=== PATIENT | female | born 1955 | race Caucasian/White ===

== ENCOUNTER → 2019-04-25 05:58 | Outpatient (CLI) | payer SELFPAY ==
[2018-10-25 10:33] VITALS: BMI 34.7
--- NOTE | 2019-04-26 15:21 | STRESSREP ---
Stress Test Report Date: 04/25/2019 Procedure: Exercise tolerance test/imaging study Indications: Dizziness Consent: Per the patient Procedure: The patient exercised on a Mamadou protocol for 7 minutes achieving a peak heart rate of 162 bpm (102 % predicted maximal heart rate) with a peak blood pressure 174/72 mmHg and a peak MET capacity of 8.5 METs. The baseline ECG demonstrated normal sinus rhythm, no significant ST-T changes. The peak exercise ECG demonstrated sinus tachycardia with [address] depression in lead III and 1 to [address] depression in lead II, aVF, V3 to V6. EKG during recovery revealed return of ST segments to baseline [There were no cardiac dysrhythmias pretest, during exercise, or recovery]. The functional capacity was considered normal for age. There was [no complaint of chest discomfort during exercise or recovery]. The examination was discontinued secondary to fatigue. Impression: 1. Technically adequate (percent predicted maximal heart rate greater than 85%) exercise tolerance test 2. Stress test is borderline for exercise-induced EKG changes of ischemia 3. The test test negative for exercise-induced chest pain 4. Functional capacity is normal for age 5. Nuclear images pending Myocardial perfusion imaging study: Technique: The patient was injected with 11.9 mCi of technetium 99m Cardiolite and subsequently rest SPECT Cardiolite nuclear imaging was obtained in the horizontal long, vertical long, and short axis views. The patient exercised on a Mamadou protocol. Please see above for details. The patient was injected with 34.2 mCi of technetium 99m Cardiolite and subsequently stress SPECT Cardiolite nuclear imaging was obtained in the horizontal long, vertical long, and short axis views. A gated Cardiolite study at peak stress was obtained. Interpretation: Rest and stress SPECT Cardiolite nuclear imaging status post realignment, normalization, and attenuation correction, demonstrates normal radioisotope uptake during rest and mildly decreased radioisotope uptake on the stress images in the anterior wall suggestive of mild anterior ischemia. The gated Cardiolite study demonstrates no significant regional wall motion abnormalities. The reported LVEF is 73 %. Impression: 1. There is mild anterior ischemia. 2. The gated Cardiolite study reports an LVEF of 73 %. This note was generated with [employer] software. It may contain incorrect words, spelling, and punctuation that were not noted in checking the note before signing.
== END ==
PROVIDERS: Family Provider Family Medicine; PCP Family Medicine; Referring Provider Family Medicine; Visit Provider Family Medicine
DX: R42 Dizziness and giddiness (principal)
CPT/HCPCS: 78452; 93017; A9500; A4216

== ENCOUNTER 2019-05-17 07:49 | Day surgery (SDC) | payer SELFPAY ==
[2019-05-14 08:54] VITALS: BMI 36.4
--- NOTE | 2019-05-14 09:48 | HP_ITS ---
HPI HPI History of Present Illness Surgical H&P: Yes Details: Mrs. Valles is a very pleasant 63-year-old nondiabetic female, lifelong non-smoking female, who complained to her primary care physician Dr. Moctezuma of 2 episodes of dizziness over the past 3 weeks in early April 2019. 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 In addition, the patient becomes profoundly diaphoretic at the the time of the episodes and resolve after 10 to 15 minutes. More recently, the patient has had several episodes of right-sided jaw pain, with exertion, but she is uncertain whether this is related to a recent filling on the right lower part of her jaw or not. The patient may require root canal. The patient's father had coronary disease diagnosed at age 50, mother is still alive in her 80s. No siblings with premature coronary disease. No previous catheterization. As part of her cardiac work-up she underwent a treadmill/MPI at [facility] on 04/25/2019. At that time she went 7 minutes on a Mamadou protocol, consistent with 8.5 METS, develop [address] segment horizontal depression along the inferior lateral leads, and had evidence of anterior ischemia. She denied any chest pain during exercise. Patient is here for further evaluation. In our office today her blood pressure is 160/90, and pulse is 80 and regular. Physical exam demonstrates clear lungs bilaterally, regular rate and rhythm, normal S1/S2. No murmurs noted. No edema. EKG dated 04/19/2019 shows normal sinus rhythm, normal axis, normal intervals, no evidence of previous myocardial infarction, essentially normal EKG. Intake Vital Signs 05/14/19 Height 5 ft 1 in 05/14/19 Weight: 193 lb 05/14/19 Body Mass Index (BMI) 36.4 05/14/19 Blood Pressure 160/90 H 05/14/19 Blood Pressure Location Lt brachial 05/14/19 Blood Pressure Position Sitting 05/14/19 Respiratory Rate 20 H 05/14/19 Pulse Rate 80 05/14/19 Pulse Source Auscultation Intake Visit Reasons: ABN Stress. /Ref. Rhianna Allergies codeine Allergy (Verified 05/14/19 09:07) Unknown Sulfa (Sulfonamide Antibiotics) Adverse Reaction (Intermediate, Verified 05/14/19 09:07) edema Medications citalopram 20 mg tablet 20 mg PO DAILY 05/11/19 [History Confirmed 05/11/19] omeprazole 20 mg capsule,delayed release 20 mg PO DAILY 05/11/19 [History Confirmed 05/11/19] aspirin 81 mg tablet,delayed release 81 mg PO .COMPLEX 05/14/19 [History Confirmed 05/11/19] clopidogrel 75 mg tablet 75 mg PO .COMPLEX #30 tab 05/14/19 [Rx Confirmed 05/14/19] losartan 25 mg tablet 25 mg PO DAILY #30 tab 05/14/19 [Rx Confirmed 05/14/19] PFSH Medical History (Updated 05/14/19 @ 09:32 by Pauline Savaedra) Hypertension (Chronic) Abnormal nuclear stress test (Acute) Anginal equivalent (Acute) Jaw pain (Acute) Dizziness (Acute) Depression (Chronic) GERD (gastroesophageal reflux disease) (Chronic) Arthritis (Acute) History of pneumonia (Acute) Hx of pancreatitis (Acute) Surgical History (Updated 10/25/18 @ 10:38 by Kelsey Riley) H/O section (Acute) History of carpal tunnel release (Acute) Family History Father , Age 83 CAD (coronary artery disease) Mother Hypertension Social History (Updated 05/14/19 @ 09:49 by Quentin Abraham MD) Smoking Status: Never smoker alcohol intake: never ROS Const Const: Negative for fatigue, weakness, body ache, fever(s), headache(s), chills, frequent falls, night sweats, daytime sleepiness, difficulty sleeping, excessive sweating, weight gain, weight loss, increased appetite, poor appetite, anorexia or other Eyes Eyes: Negative for blind spots, loss of peripheral vision, transient loss of vision, blurry vision, change in vision, double vision, floaters, tunnel vision or other ENT ENT: Negative for headache(s), dizziness, hearing loss, tinnitus, Nosebleed/epistaxis, balance problems, post nasal drip, lip swelling, tongue swelling, bleeding gums, hoarseness, neck pain, dry mouth or other Cardio Chest Pain: No Resp Respiratory: Negative for SOB with activity, SOB at rest, SOB orthopnea\SOB lying down, Coughing up blood/hemoptysis, chest congestion, pain on inspiration, snoring, stridor, wheezing, crackles, paroxysmal nocturnal dyspnea or other GI GI: Negative nausea, vomiting, heartburn, constipation, belching, bloating, cramping, vomiting blood/hematemesis, bright, red blood in stools, black,tarry stools, loose stools, Difficulty Swallowing or other : Negative for hematuria, frequent nighttime urination/ nocturia, erectile dysfunction or abnormal vaginal bleeding Musc Musc: Negative for muscle aches/ myalgia, muscle weakness, joint pain or balance problems Skin Skin: Negative redness, non-healing lesions, rash, unusual bruising, skin ulcer, wounds, jaundice or other Neuro Neuro: Negative for dizziness, lightheadedness, near syncope, syncope, orthostatic symptoms, frequent falls, headache(s), weakness, confusion, memory loss, restless legs, blurry vision, double vision, vertigo, seizures, lack of coordination or other Naresh Hematologic/Lymphatic: Negative for easy bleeding, easy bruising, enlarged lymph nodes or other Endo Endo: Negative for fatigue, cold intolerance, heat intolerance, excessive sweating, flushing, increased thirst/drinking, increased hunger, hair loss, hair growth or other Psych Psych: Negative for anxiety, depression, thoughts of harming anyone, thoughts of harming yourself, visual hallucinations, panic attacks or audible hallucinations Allergy Allergy/Immunology: Negative for throat swelling, Negative for tongue swelling, Negative for hives, Negative for rash, Negative for lip swelling Cardiology Exam Const Appearance: cooperative, healthy appearing and no acute distress Nutritional Appearance: well nourished Orientation: alert, oriented x3 and oriented to person Head Head: normal to inspection, normocephalic and atraumatic Nose: external nose normal Face and Sinus: face symmetric Mouth: oral mucosae normal Eyes General: appearance normal, both eyes and all related structures Eyelids: eyelids normal Conjunctivae: conjunctivae normal Pupils: PERRL and normal by confrontation EOM: EOM intact bilaterally Neck Neck: normal visual inspection and full ROM Carotids: normal carotid upstroke Chest Chest inspection: normal inspection of the chest Auscultation: Bilateral: Clear to Auscultation Cardio Palpation: normal PMI Rate: regular rate Rhythm: regular rhythm Heart sounds: S1 normal and S2 normal GI GI: normal to inspection, no hepatosplenomegaly and bowel sounds present Neuro General: alert, awake, oriented x3, CN's II-XI intact bilaterally and moves all extremities Skin Skin: no rashes or lesions noted Extremities Pulses: Normal: Right Femoral Pulse, Left Femoral Pulse, Right Dorsalis Pedis Pulse, Left Dorsalis Pedis Pulse, Right Posterior Tibial Pulse, Left Posterior Tibial Pulse, Right Radial Pulse, Left Radial Pulse Lower Extremity Edema: None: Bilateral Psych Psychological: normal affect Assessment & Plan 1. Abnormal nuclear stress test R94.39 04/25/2019 anterior ischemia on nuclear scan Plan 1. Abnormal stress: The patient has signs and symptoms as well as risk factors of possible coronary occlusive disease with exercise-induced dizziness, exercise-induced severe diaphoresis, shortness of breath, and right-sided jaw pain. In addition she had a treadmill nuclear stress test which was abnormal for anterior ischemia. She has a positive family history of premature coronary disease in her father at age 50. Given the patient's constellation of symptoms, risk factors, I recommended that she undergo a left her catheterization and coronary angiography. In addition I recommend starting her on baby aspirin 81 mg p.o. daily, loading with Plavix 300 mg x 1 now, followed by 75 mg p.o. daily. In addition we will start her on losartan 25 mg p.o. daily for her hypertension. The risks/benefits of the catheterization procedure were thoroughly expend the patient including specific attention to lack of on-site surgical back-up, the patient agreed to proceed. The patient's coronary arteries are within normal limits, it is possible patient may have hypertension induced dizziness and diaphoresis. In addition I recommend that she undergo a 2D echo with Doppler to evaluate her LV function, LVH, pulmonary pressures and valvular status Orders Orders: Left Heart Cath 05/13/19 Basic Metabolic Profile (BMP) 05/13/19 Partial Thromboplast Time 05/13/19 Prothrombin Time w/INR 05/13/19 CBC-Complete Blood Cnt No Diff 05/13/19 Chest PA and Lateral 05/13/19 Echo Complete Today 2. Hypertension I10 Plan 2. Hypertension: Recommend starting her on losartan 25 mg p.o. daily. 3. Hyperlipidemia: Recommend obtaining a fasting lipid profile. 4. Return office in 6 months. This note was generated using a voice recognition system and there may be incorrect words, spelling or punctuation that were not noted when reviewing the office note prior to saving. Orders Orders: Echo Complete Today Plan Detail Other Orders Orders: Left Heart Cath 05/13/19 I20.8, R42, R61, R68.84 Basic Metabolic Profile (BMP) 05/13/19 I20.8, R42, R61, R68.84 Partial Thromboplast Time 05/13/19 I20.8, R42, R61, R68.84 Prothrombin Time w/INR 05/13/19 I20.8, R42, R61, R68.84 CBC-Complete Blood Cnt No Diff 05/13/19 I20.8, R42, R61, R68.84 Chest PA and Lateral 05/13/19 I20.8, R42, R61, R68.84 Lipid Profile Today Z13.220 Liver Profile Today Z13.220 Echo Complete Today I20.8, R42, R61, R68.84 Other Medications Changed: From: aspirin (Aspirin Low Dose) 81 mg PO daily: order at appt.; To: aspirin (Aspirin Low Dose) 81 mg PO daily Follow Up +6M (Jarad) Coding Level of Care Code Off vis,new,level 4 Diagnoses Abnormal nuclear stress test R94.39 Hypertension I10 Coding Level of Care Code Off vis,new,level 4 Diagnoses Abnormal nuclear stress test R94.39 Hypertension I10 Supplemental Info Supplemental Information Diagnostics Stress Test Nuclear Medicine 04/25/19 Stress Test 04/26/19 05/14/19 0949 <Electronically signed by Quentin Abraham MD> Date _ Quentin Abraham MD
--- NOTE | 2019-05-14 10:14 | RAD_ITS ---
STUDY: X-RAY CHEST REASON FOR EXAM: Female, 63 years old. Chest pains and shortness of breath TECHNIQUE: PA and lateral views of the chest. COMPARISON: None. FINDINGS: The lungs are clear and expanded. There is no demonstrated pleural abnormality. Normal size heart. Normal mediastinum and urmila. Normal visualized pulmonary arteries. There are calcified plaques of the aortic arch. There are diffuse degenerative changes of the visualized thoracic spine. Normal visualized ribs, clavicles, and shoulders. There is no demonstrated abnormality of the visualized soft tissue structures of the upper abdomen. RAD/Chest PA and Lateral IMPRESSION: Calcified plaques of the aortic arch. Mild degenerative changes of the thoracic spine. No acute cardiopulmonary disease process is seen. Electronically Signed: Deonte Clifford MD at 20:18 EDT , Service support ,
[2019-05-14 11:17] LABS: Hematocrit 40.4 % (37-47); Hemoglobin 12.9 g/dL (12.0-15.0); Mean Corp Hgb Conc 31.9 g/dL (32-36); Mean Corpuscular Hgb 28.7 pg (27.0-32.0); Mean Corpuscular Volume 89.8 fL (81-99); Mean Platelet Vol. 10.1 fl (6.2-12.0); Platelet Count 317 K/mm3 (150-450); RBC Distribution Width CV 13.4 % (11.6-14.6); White Blood Count 7.2 K/mm3 (4.4-11.0)
[2019-05-14 11:43] LABS: Partial Thromboplast Time 30.3 Seconds (24.1-36.2); Prothrombin Time (Protime)PT. 12.9 SECONDS (11.7-14.9)
[2019-05-14 11:50] LABS: AST(SGOT) 17 U/L (15-37); Alanine Aminotransfer ALT/SGPT 19 U/L (13-56); Albumin, Serum 3.6 g/dL (3.2-5.0); Alkaline Phosphatase 111 U/L (45-117); Anion Gap 7 (5-15); BUN 9 mg/dL (7-18); BUN/Creat Ratio 12.2 RATIO (10-20); Bilirubin, Direct 0.06 mg/dL (0.00-0.30); Calcium,Total 9.2 mg/dL (8.5-10.1); Chloride 107 mmol/L (98-107); Cholesterol 219 mg/dL (200); Creatinine, Serum 0.74 mg/dL (0.55-1.02); EST Glomerular Filtration Rate 85 mL/min (>60); Est Glom Filt Rate - Afr Amer 102 mL/min (>60); Globulin 3.7 g/dL (2.2-4.2); Glucose 91 mg/dL (74-106); High Density Lipoprotein 44 mg/dL; Potassium 4.2 mmol/L (3.5-5.1); Protein, Total 7.3 g/dL (6.4-8.2); Sodium Level 142 mmol/L (136-145); Triglycerides 282 mg/dL; Very Low Density Lipoprotein 56 mg/dL (5-40)
--- NOTE | 2019-05-17 10:34 | CL.D_ITS ---
Patient Name: YONI JORDAN Study Date: 05/17/2019 Performing: Quentin Abraham MD Ht: 61.02 inches 155 cm : 1955 Wt: 189.99 lbs 86.18 kg Age: 63 Gender: female BSA: 1.85 PROCEDURE(S) PERFORMED YC77-CPH/COR/LV CLINICAL PROFILE AND INDICATIONS Indications: Suspected CAD Heart Failure: None Stress/Imaging Date: 04/25/2019Stress Test with SPECT MPI: Positive Low Risk Angina Classification Anginal Classification w/in 2 Weeks: No symptoms CAD Presentations: Other: Dyspnea, dizziness, diaphoresis Comorbidities/Risk Factors: Hypertension CONCLUSIONS RECOMMENDATIONS Risk factor modification Management as per referring Road 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 DESCRIPTION OF PROCEDURE The patient arrived to the procedure lab. The risks and benefits of the procedure as well as a full d escription of our services here and current unavailability of surgical backup were fully explained to the patient and/or their significant other prior to the catheterization. The Timeout was completed, verifying the correct patient and procedure. The patient's procedural site was prepped and draped in the usual fashion. Local anesthetic was given subcutaneously to right groin region with Lidocaine 2%. Using a modified Seldinger technique, arterial access was obtained via the right femoral artery, a 4 Fr sheath was inserted Left Coronary Artery selective angiography was performed in multiple views us ing a 4 Fr. JL5 catheter. Right Coronary Artery selective angiography was then performed in multiple views using a 4 Fr. 3DRC catheter. Left Ventriculography was performed in LIN projection using a 4 Fr . Pigtail catheter. LV to AO pullback pressures were then recorded. CORONARY ANGIOGRAPHY DOMINANCE: Right Dominant LEFT HEART ASSESSMENT Left Ventricular Ejection Fraction: by LV Gram 65 % Normal LV wall motion Normal Left Ventricular systolic function Normal Left Ventricular systolic function LVEDP: 8 mmHg Normal Left Ventricular End Diastolic Pressure LEFT MAIN: Angiographically normal LEFT ANTERIOR DESCENDING ARTERY: Angiographically normal CIRCUMFLEX ARTERY: Angiographically normal RIGHT CORONARY ARTERY: Angiographically normal COMPLICATIONS No Complications PROCEDURE MEDICATIONS Versed 1 mg IV Oxygen: 2 L/min via nasal cannula SUMMARY OF HEMODYNAMIC DATA Time AIR REST ECG 08:13:39 AO 157/74 (107) SA 10:21:33 LV 171/-13, 9 10:27:44 LV 173/-19, 9 10:27:51 LVp 162/-21, 8 10:28:08 AO 160/73 (110) 10:28:13 Signed By Quentin Abraham MD On 05/17/2019 10:34:06 Quentin Abraham MD
== END 2019-05-17 16:00 | disposition home or self-care (01) ==
LOC: CLSP 07:51
PROVIDERS: Family Provider Family Medicine; PCP Family Medicine; Referring Provider Internal Medicine Cardiovascular Disease; Visit Provider Internal Medicine Cardiovascular Disease
DX: I20.8 Other forms of angina pectoris (principal); R61 Generalized hyperhidrosis; R42 Dizziness and giddiness; R68.84 Jaw pain; R94.39 Abnormal result of other cardiovascular function study; I10 Essential (primary) hypertension; F32.9 Major depressive disorder, single episode, unspecified; K21.9 Gastro-esophageal reflux disease without esophagitis; Z79.82 Long term (current) use of aspirin; Z79.899 Other long term (current) drug therapy; Z82.49 Family history of ischemic heart disease and other diseases of the circulatory system
CPT/HCPCS: 71046; 80048; 80061; 80076; 85027; 85610; 85730; 93458; 99152; J7040; Q9967; C1769; C1894

== ENCOUNTER → 2019-05-27 14:58 | Outpatient (CLI) | payer SELFPAY ==
[2019-05-14 08:54] VITALS: BMI 36.4
--- NOTE | 2019-05-27 14:59 | ECHOD_ITS ---
Reason For Study: Chest Pain Procedure This was a 2D Doppler, Color Flow transthoracic echocardiogram. Exam performed in department. Left Ventricle Normal size and thickness. The estimated ejection fraction is 65 %. Stage 1 diastolic dysfunction. No regional wall motion abnormalities noted. Right Ventricle Normal size and thickness. Normal systolic function. Atria Normal left atrium. Normal right atrium. Normal atrial septum. Mitral Valve The mitral valve is structurally normal. No prolapse or stenosis seen. Trivial mitral valve insufficiency. Tricuspid Valve Normal tricuspid valve. Unable to estimate RV systolic pressure due to insufficient tricuspid regurgitant envelope. Aortic Valve Normal aortic valve. Trisinus/trileaflet aortic valve. Pulmonic Valve Normal pulmonic valve. Great Vessels Normal aortic root. Normal arch. Normal inferior vena cava. Inferior vena cava collapse with sniff. Pericardium/Pleural No pericardial effusion. MMode/2D Measurements & Calculations LVIDd: 4.1 cm IVSd: 1.0 cm Ao root diam: 3.4 cm LVIDs: 2.9 cm LVPWd: 1.00 cm RVDd: 3.3 cm FS: 28.6 % LAV(MOD-bp): 67.5 ml LVAd ap4: 22.8 cm2 SV(MOD-sp4): 39.3 ml LAV(MOD-bp) Indexed: 36.4 ml/m2 EDV(MOD-sp4): 63.3 ml LAV(MOD-sp2): 72.9 ml EDV(sp4-el): 65.7 ml LAV(MOD-sp4): 56.2 ml LVAs ap4: 13.0 cm2 ESV(MOD-sp4): 24.0 ml ESV(sp4-el): 23.2 ml EF(MOD-sp4): 62.1 % EF(sp4-el): 64.7 % SV(sp4-el): 42.5 ml LA A4 area: 19.5 cm2 LA dimension(2D): 3.3 cm RA A4 area: 10.3 cm2 Doppler Measurements & Calculations MV E max yahir: 79.3 cm/sec Lat Peak E' Yahir: 6.9 cm/sec Med Peak E' Yahir: 8.6 cm/sec MV A max yahir: 86.3 cm/sec E/E' lat: 11.5 E/E' med: 9.2 MV E/A: 0.92 Ao V2 max: 153.6 cm/sec LV V1 max: 113.6 cm/sec PA V2 max: 83.6 cm/sec Ao max P.4 mmHg LV V1 max P.2 mmHg Ao V2 mean: 104.9 cm/sec Ao mean P.9 mmHg Ao V2 VTI: 31.0 cm Interpretation Summary The estimated ejection fraction is 65 %. Stage 1 diastolic dysfunction. Trivial mitral valve insufficiency. Unable to estimate RV systolic pressure due to insufficient tricuspid regurgitant envelope. There is no comparison study available. Ordering Physician: Quentin Abraham Referring Physician: Hina Moctezuma Performed By: Krupa Vieira, GOLDIE, RVT
== END ==
PROVIDERS: Family Provider Family Medicine; PCP Family Medicine; Referring Provider Internal Medicine Cardiovascular Disease; Visit Provider Internal Medicine Cardiovascular Disease
DX: R07.9 Chest pain, unspecified (principal); R68.84 Jaw pain; R61 Generalized hyperhidrosis; I20.8 Other forms of angina pectoris; R94.39 Abnormal result of other cardiovascular function study; I10 Essential (primary) hypertension; R42 Dizziness and giddiness
CPT/HCPCS: 93306

== ENCOUNTER → 2019-05-31 10:57 | Outpatient (REF) | payer SELFPAY ==
[2019-05-14 08:54] VITALS: BMI 36.4
== END ==
LOC: CVS 10:57
PROVIDERS: Family Provider Family Medicine; PCP Family Medicine; Referring Provider Internal Medicine Cardiovascular Disease; Visit Provider Internal Medicine Cardiovascular Disease
DX: R42 Dizziness and giddiness (principal); R61 Generalized hyperhidrosis
CPT/HCPCS: 93270

== ENCOUNTER 2020-06-24 20:36 | Emergency (ER) | payer OTHER, SELFPAY ==
[2019-12-02 15:51] VITALS: BMI 36.8
[2020-06-24 20:37] VITALS: BP 150/86; PULSE 90; RESP 16; TEMP 36.9; O2SAT 98; BMI 35.9
--- NOTE | 2020-06-24 21:02 | CT_ITS ---
STUDY: CT ABDOMEN AND PELVIS WITH CONTRAST REASON FOR EXAM: Female, 65 years old. LOWER RIGHT ABD PAIN SINCE MONDAY WITH DIARRHEA TODAY, INCREASED AFTER EATING TONIGHT RADIATION DOSAGE (If Supplied By Facility): CTDIvol = ( 15.39 ) mGy, DLP = ( 962.06 ) mGycm TECHNIQUE: Transaxial images were obtained from the dome of the diaphragm to the symphysis pubis with oral contrast. Oral and amp; IV Breeza and amp; 100mL Isovue-370 was administered. Sagittal and coronal images were reconstructed. Follow-up Individualized dose optimization techniques were used for this CT. COMPARISON: None. FINDINGS: The visualized lung bases are unremarkable. The visualized portions of the heart are within normal limits. Normal liver, with incidental small cyst of the left lobe. There is a solitary gallstone. Normal spleen. Normal pancreas. Normal bilateral adrenal glands. Normal right kidney. Normal left kidney. Normal visualized stomach. Normal small intestine. Normal colon. The appendix is visualized and appears normal. There is a focal 5.7 cm lobule of inflamed fat off of the right omentum just anterior to the descending colon and associated with adjacent fat stranding/edema. Findings are consistent with acute epiploic appendagitis. Normal abdominal aorta. Normal inferior vena cava. Normal retroperitoneum. Normal urinary bladder. Normal visualized uterus. There is a small umbilical hernia containing fat. There are diffuse degenerative changes of the visualized lumbar spine. CT/Abdomen/Pelvis WITH Contrast IMPRESSION: 5.7 cm lobule of inflamed fat off of the right omentum just anterior to the descending colon consistent with acute epiploic appendagitis. Electronically Signed: Munir Goode MD at 23:05 EDT , Service support ,
--- NOTE | 2020-06-24 21:03 | ED.VISSUMM ---
- ER Visit Summary Date of Service: 06/24/20 Chief Complaint: [Abdominal pain] History of Present Illness: The patient is a 65 F [presents to the emergency department with complaint of abdominal pain that started 5 days ago. Patient states that at times she just did not notice it very much but always had some mild discomfort to the right side. Bending turning and moving would typically make it worse. The pain became more severe after eating dinner tonight. Patient denies nausea or vomiting. At rest her pain is only about a 1 or 2 out of 10. She is never had pain like this before. She has no medical history. No prior surgical history. She denies urinary symptoms. She denies blood in her stool or black tarry stools.] Physical Examination: [HEENT-PERRLA, EOMI. Cranial nerves II through XII grossly intact. TMs clear. Mucous membranes moist. No adenopathy. Cardiovascular-regular rate and rhythm without murmur or ectopy Lungs-clear to auscultation, chest wall stable without crepitus or subcu emphysema Abdomen-normoactive bowel sounds, soft. Patient has tenderness to palpation over the right upper quadrant as well as the right lower quadrant. Patient has some mild tenderness over the epigastric region and left upper quadrant. There is no rebound, rigidity, or peritoneal signs. Extremities-intact ?4, normal range of motion, normal pulses, atraumatic] Test Results: [CBC with differential obtained showed a white 11.3, hemoglobin 11.9, hematocrit 37, placed 315. Chemistries unremarkable. LFTs normal. Urinalysis normal. Lactate was 0.9. CT scan of the abdomen pelvis with IV and p.o. contrast showed a 5.7 cm lobule of inflamed fat off the right omentum consistent with epiploic appendagitis.] Emergency Department Course and Treatment: [Patient did not want anything for pain while in the department. Case was discussed with general surgeon on-call Dr. Norman Sutton. Treatment for this condition is supportive and typically does not require any type of intervention. 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 Patient to return if worsening pain, fever, vomiting, bloody stools, or condition should worsen anyway.] Disposition: [Discharged home in stable condition] Impression: [Abdominal pain Epiploic appendagitis] This note was generated with [employer] dictation software. It may contain incorrect words, spelling, and punctuation that were not noted in review of the chart prior to signing ED Disposition - Plan for ED Patient: Referrals: Hina Moctezuma MD [Primary Care Provider] -
[2020-06-24] MEDS: 0.9% Normal Saline 1,000 ML 125 ML IV (21:09)
[2020-06-24 21:11] LABS: Mucous, Urine 0 SEEN /hpf (<or=2+); Red Blood Cells-Urine 0 SEEN /hpf (0-5)
[2020-06-24 21:15] LABS: Color, Urine Yellow (Yellow); Glucose, Dipstick Normal (Normal); Ketone-Dipstick Negative (Negative); Leukocyte Esterase-Dipstick 25 /ul (Negative); Nitrite-Dipstick Negative (Negative); Occult Blood-Urine 10 /ul (Negative); Protein-Dipstick Negative (Negative); Specific Gravity, Urine 1.015 (1.002-1.030); Urine Bilirubin Dipstick Negative (Negative); Urine Clarity Clear (Clear); Urine Urobilinogen Normal (Normal)
[2020-06-24 21:20] LABS: Bacteria RARE /hpf (None Seen); Squamous Epithelial Cells - UA 0-5 SEEN /hpf (5-10); White Blood Cells 0-5 SEEN /hpf (0-5)
[2020-06-24 21:21] LABS: Absolute Neutrophil Count 7.7 X10^3/uL (2.0-7.7); Basophil# 0.04 X10^3/uL; Basophil% 0.4 % (0-1); Eosinophils% 1.8 % (0-5); Hematocrit 37.2 % (37-47); Hemoglobin 11.9 g/dL (12.0-15.0); Lymphocyte % 22.2 % (19-41); Mean Corpuscular Hgb 28.6 pg (27.0-32.0); Mean Corpuscular Volume 89.4 fL (81-99); Mean Platelet Vol. 10.5 fl (6.2-12.0); Monocyte# 0.74 X10^3/uL; Monocyte% 6.6 % (0-10); NRBC Flagged by Analyzer 0 % (0-5); Neutrophil # 7.74 X10^3/uL (2.7-7.7); Neutrophil % 68.7 % (47-70); Platelet Count 315 K/mm3 (150-450); RBC Distribution Width CV 13.5 % (11.6-14.6); RBC Distribution Width SD 44.1 fl (35.1-43.9); Red Blood Count 4.16 M/mm3 (4.2-5.4); White Blood Count 11.3 K/mm3 (4.4-11.0)
[2020-06-24 21:32] LABS: ALB/GLOB Ratio 0.9 RATIO (0.9-2.4); AST(SGOT) 16 U/L (15-37); Alanine Aminotransfer ALT/SGPT 17 U/L (13-56); Albumin, Serum 3.4 g/dL (3.2-5.0); Alkaline Phosphatase 115 U/L (45-117); Anion Gap 6 (5-15); BUN 14 mg/dL (7-18); BUN/Creat Ratio 14.3 RATIO (10-20); Calcium,Total 8.8 mg/dL (8.5-10.1); Chloride 109 mmol/L (98-107); Creatinine, Serum 0.98 mg/dL (0.55-1.02); EST Glomerular Filtration Rate 61 mL/min (>60); Est Glom Filt Rate - Afr Amer 74 mL/min (>60); Estimated Creatinine Clearance 43.76 ml/min; Globulin 3.8 g/dL (2.2-4.2); Glucose 123 mg/dL (74-106); Lipase 187 U/L (73-393); Potassium 4.1 mmol/L (3.5-5.1); Protein, Total 7.2 g/dL (6.4-8.2); Sodium Level 141 mmol/L (136-145)
[2020-06-24 21:40] LABS: Lactic Acid 0.9 mmol/L (0.4-1.9)
[2020-06-24 22:36] VITALS: RESP 17
--- NOTE | 2020-06-24 23:24 | ED.DEP ---
ED Disposition - Plan for ED Patient: Instructions: ED Abdominal Pain Unkn Cause Fem Referrals: Hina Moctezuma MD [Primary Care Provider] - 3-5 Days Norman Sutton MD [STAFF PHYSICIAN] - 3-5 Days
[2020-06-24 23:31] VITALS: BP 144/86; PULSE 86; RESP 18; O2SAT 98
== END 2020-06-24 23:31 | disposition home or self-care (01) ==
LOC: ED 21:19
PROVIDERS: Emergency Provider Emergency Medicine; PCP Family Medicine
DX: R10.9 Unspecified abdominal pain (principal); K63.89 Other specified diseases of intestine
CPT/HCPCS: 74177; 80053; 81001; 83605; 83690; 85025; 96360; 96361; 99284; J7030; Q9967; A4216

== ENCOUNTER → 2020-07-16 14:19 | Outpatient (CLI) | payer SELFPAY ==
[2020-06-24 20:37] VITALS: BMI 35.9
--- NOTE | 2020-07-16 14:40 | CT_ITS ---
STUDY: CT ABDOMEN AND PELVIS WITH CONTRAST REASON FOR EXAM: Female, 65 years old. Epiploic appendagitis. No pain today RADIATION DOSAGE (If Supplied By Facility): CTDIvol = ( 15.57 ) mGy, DLP = ( 1041.88 ) mGycm TECHNIQUE: Transaxial images were obtained from the dome of the diaphragm to the symphysis pubis without oral contrast. IV 100mL Isovue-300 was administered. Sagittal and coronal images were reconstructed. Individualized dose optimization techniques were used for this CT. COMPARISON: Comparison is made with prior study of 06/24/2020. FINDINGS: The visualized lung bases are unremarkable. The visualized portions of the heart are within normal limits. Stable cysts of the left lobe of the liver. There are multiple small gallstones. Normal spleen. Normal pancreas. Normal bilateral adrenal glands. Normal right kidney. Normal left kidney. There is a small hiatal hernia. Normal small intestine. Normal colon. The previously seen focal inflammation of the right omentum just anterior to the ascending colon has markedly improved. Minimal residual changes persist. The appendix is visualized and appears normal. Normal abdominal aorta. Normal inferior vena cava. There is borderline retroperitoneal lymphadenopathy with enlarged nodes no greater than 10mm in the short axis diameter. Normal urinary bladder. There is a small umbilical hernia containing fat. Disc space narrowing and disc degeneration at the L5-S1 level with subchondral sclerosis. CT/Abdomen/Pelvis WITH Contrast IMPRESSION: Almost complete clearing of the inflammatory changes in the right omentum just anterior to the ascending colon. Electronically Signed: Johnathan Thrasher, at 15:10 EDT , Service support ,
== END ==
PROVIDERS: PCP Family Medicine; Referring Provider Family Medicine; Visit Provider Family Medicine
DX: K63.89 Other specified diseases of intestine (principal)
CPT/HCPCS: 74177; Q9967

== ENCOUNTER → 2020-08-05 12:13 | Outpatient (CLI) | payer SELFPAY ==
--- NOTE | 2020-08-05 12:15 | RAD_ITS ---
STUDY: X-RAY CHEST REASON FOR EXAM: Female, 65 years old. COUGH, SHORT OF BREATH TECHNIQUE: PA and lateral views of the chest. COMPARISON: Comparison is made with prior study dated 05/14/2019. FINDINGS: There now is evidence of patchy infiltrates in both lower lobes more prominent in the left lower lobe with some blunting of the left costophrenic angle. There is no demonstrated pleural abnormality. Normal size heart. Normal mediastinum and urmila. Normal visualized pulmonary arteries. There is atherosclerotic calcification of the aortic arch with tortuosity. There are diffuse degenerative changes of the visualized thoracic spine. Normal visualized ribs, clavicles, and shoulders. There is no demonstrated abnormality of the visualized soft tissue structures of the upper abdomen. RAD/Chest PA and Lateral IMPRESSION: Bibasilar infiltrates more prominent on the left side. Electronically Signed: Johnathan Thrasher, at 12:47 EDT , Service support ,
== END ==
PROVIDERS: PCP Family Medicine; Referring Provider Family Medicine; Visit Provider Family Medicine
DX: R05 Cough (principal)
CPT/HCPCS: 71046

== ENCOUNTER → 2021-05-18 16:14 | Outpatient (CLI) | payer MEDICARE, SELFPAY ==
--- NOTE | 2021-05-18 16:19 | RAD_ITS ---
STUDY: X-RAY - LEFT TIBIA AND FIBULA REASON FOR EXAM: Left calf pain, left calf injury 2 weeks ago. TECHNIQUE: 2 view(s) of the tibia and fibula were obtained. COMPARISON: None. FINDINGS: Normal visualized tibia. Normal visualized fibula. The soft tissue structures are unremarkable. RAD/Tibia & Fibula 2 Views IMPRESSION: Normal x-ray examination of the left tibia and fibula. Electronically Signed: Tyshawn Correa MD at 12:10 EDT Tel , Service support ,
--- NOTE | 2021-05-18 16:19 | RAD_ITS ---
STUDY: X-RAY - LEFT WRIST REASON FOR EXAM: Left wrist pain, left wrist injuries from several falls. TECHNIQUE: 3 view(s) of the wrist were obtained. COMPARISON: None. FINDINGS: There is osteopenia. Normal visualized distal radius and ulna. Normal radiocarpal articulation. Normal distal radioulnar articulation. Normal carpal bones. There is mild joint space narrowing of the triscaphe articulation. There is moderately severe joint space narrowing of the carpometacarpal articulation of the thumb. Normal second through fifth carpometacarpal articulations. Normal visualized metacarpal bones. The soft tissue structures are unremarkable. 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 No demonstrated fracture. Electronically Signed: Tyshawn Correa MD at 13:46 EDT Tel , Service support ,
== END ==
PROVIDERS: PCP Family Medicine; Referring Provider Family Medicine; Visit Provider Family Medicine
DX: S60.212A Contusion of left wrist, initial encounter (principal); M79.662 Pain in left lower leg
CPT/HCPCS: 73110; 73590

== ENCOUNTER → 2021-05-20 12:49 | Outpatient (CLI) | payer MEDICARE, SELFPAY ==
--- NOTE | 2021-05-20 12:56 | VDLE_ITS ---
Reason For Study: pain LEFT GSV is normal. CFV is compressible, spontaneous, phasic, competent, and demonstrates normal augmentation. FV is compressible, spontaneous, phasic, competent and demonstrates normal augmentation. POP V is compressible, spontaneous, phasic, competent and demonstrates normal augmentation. T/P Trunk is compressible. PTV is compressible. LT PerV is compressible. VL/Venous Duplex US, Unilateral Interpretation Summary Deep veins of the left lower extremity are patent and compressible segmentally. There is no evidence of left lower extremity deep vein thrombosis. Valvular competence appears intac t within the proximal deep venous system on the left . The left great saphenous vein appears patent a nd compressible segmentally. Ordering Physician: Hina Moctezuma Performed By: Kodak Smith RVT
== END ==
PROVIDERS: PCP Family Medicine; Referring Provider Family Medicine; Visit Provider Family Medicine
DX: M79.662 Pain in left lower leg (principal)
CPT/HCPCS: 93971

== ENCOUNTER → 2022-02-02 | Outpatient (CLI) | payer MEDICARE, SELFPAY | END | disposition home or self-care (01) | PROVIDERS: PCP Family Medicine; Referring Provider Family Medicine; Visit Provider Family Medicine | DX: Z11.59 Encounter for screening for other viral diseases (principal) | CPT/HCPCS: 87635; U0003; U0005 ==

== ENCOUNTER → 2022-04-05 | Outpatient (CLI) | payer MEDICARE, SELFPAY ==
[2022-04-05 10:26] LABS: Anion Gap 6 (5-15); BUN 15 mg/dL (7-18); BUN/Creat Ratio 18.1 RATIO (10-20); Calcium,Total 8.9 mg/dL (8.5-10.1); Chloride 107 mmol/L (98-107); Cholesterol 209 mg/dL (200); Creatinine, Serum 0.83 mg/dL (0.55-1.02); EST Glomerular Filtration Rate 73 mL/min (>60); Est Glom Filt Rate - Afr Amer 89 mL/min (>60); Glucose 92 mg/dL (74-106); High Density Lipoprotein 47 mg/dL; Potassium 4.3 mmol/L (3.5-5.1); Sodium Level 138 mmol/L (136-145); Triglycerides 204 mg/dL; Very Low Density Lipoprotein 41 mg/dL (5-40)
== END | disposition home or self-care (01) ==
LOC: MFPLAB 09:19
PROVIDERS: PCP Family Medicine; Referring Provider Family Medicine; Visit Provider Family Medicine
DX: I10 Essential (primary) hypertension (principal)
CPT/HCPCS: 36415; 80048; 80061

== ENCOUNTER → 2022-04-11 | Outpatient (CLI) | payer MEDICARE, SELFPAY ==
[2022-04-14 11:20] LABS: HPV HC, High Risk Negative
== END | disposition home or self-care (01) ==
LOC: MFPLAB 16:04
PROVIDERS: PCP Family Medicine; Visit Provider Family Medicine
DX: Z12.4 Encounter for screening for malignant neoplasm of cervix (principal)
CPT/HCPCS: 87624; 88175; G0145

== ENCOUNTER → 2022-06-02 | Outpatient (CLI) | payer MEDICARE, SELFPAY ==
--- NOTE | 2022-06-02 10:19 | BI_ITS ---
MAMMOGRAPHY - BILATERAL SCREENING REASON FOR EXAM: Female, 67 years old. Routine annual screening examination. PERTINENT HISTORY: Non-contributory. TECHNIQUE: Digital bilateral breast erick (3D mammographic acquisition) in the CC and MLO projections. 2-D mediolateral oblique (MLO) and craniocaudad (CC) views of both breasts were obtained. CAD: Full Field Digital Mammography with Computer Added Detection was performed. COMPARISON: Comparison is made with prior examination dated 04/10/2014. FINDINGS: Breast Composition: The breasts are heterogeneously dense, which may obscure small masses. There are no dominant masses or suspicious calcifications. Stable small benign-appearing bilateral axillary nodes. No other significant abnormalities are identified. There has been no significant change since the prior study. BI/SCRN MAMM (CAD)W/ERICK BILAT IMPRESSION: Stable bilateral screening mammogram. Yearly follow-up mammogram recommended. (A) ASSESSMENT CATEGORY: BIRADS Category 2: Benign. A letter regarding these results will be sent to the patient by the facility within 30 days. Approximately 10% of breast cancers are not detected by mammography. A normal mammogram should not delay biopsy of a clinically suspicious abnormality. [id number] Electronically Signed: Johnathan Thrasher MD at 15:24 EDT ,
--- NOTE | 2022-06-02 10:20 | BD_ITS ---
STUDY: DUAL ENERGY X-RAY ABSORPTIOMETRY / DXA REASON FOR EXAM: Female, 66 years old. [id number] TECHNIQUE: Bone Mineral Density (BMD) measurements of lumbar spine and bilateral hips were obtained. COMPARISON: None. FINDINGS: Lumbar Spine (L1-L4): g/cm2 (0.925) / T-score (-1.1) / Z-score (0.7) Findings are suggestive of osteopenia with a low fracture risk. Left Femur Total: g/cm2 (0.794) / T-score (-1.2) / Z-score (0.1) Left Femoral Neck: g/cm2 (0.609) / T-score (-2.2) / Z-score (-0.6) Right Femur Total: g/cm2 (0.736) / T-score (-1.7) / Z-score (-0.4) Right Femoral Neck: g/cm2 (0.562) / T-score (-2.6) / Z-score (-1.0) BD/Dexa Bone Density Study IMPRESSION: The patient is considered osteoporotic as outlined below according to World Bobby Organization (WHO) criteria with a high fracture risk. Reference Information: The T-score is the number of standard deviations above or below the standard which is normal for young adults at their peak bone mineral density. The World Health Organization (WHO) interprets the T-scores as follows: Above -1 Normal bone density Between -1 and -2.5 Osteopenia Equal to / or below -2.5 Osteoporosis As a practical clinical guideline, osteopenia may be graded as follows: Mild -1 through -1.5 Moderate -1.6 through -2.0 Severe -2.1 through -2.4 The Z-score is the number of standard deviations above or below age-matched controls. A Z-score of less than -1.5 would be considered abnormal. References: 1. NIH Osteoporosis and Related Bone Diseases www osteo.org 2. International Society for Clinical Densitometry www iscd.org 3. National Osteoporosis Foundation www nof.org Electronically Signed: Johnathan Thrasher MD at 15:31 EDT ,
== END | disposition home or self-care (01) ==
LOC: OPBD 10:17
PROVIDERS: PCP Family Medicine; Visit Provider Family Medicine
DX: Z12.31 Encounter for screening mammogram for malignant neoplasm of breast (principal); N95.9 Unspecified menopausal and perimenopausal disorder
CPT/HCPCS: 77063; 77067; 77080

== ENCOUNTER → 2023-05-30 | Outpatient (CLI) | payer MEDICARE, SELFPAY ==
[2023-05-30 18:08] LABS: Anion Gap 5 (5-15); BUN 12 mg/dL (7-18); BUN/Creat Ratio 14.2 RATIO (10-20); Calcium,Total 8.9 mg/dL (8.5-10.1); Chloride 107 mmol/L (98-107); Cholesterol 201 mg/dL (200); Creatinine, Serum 0.84 mg/dL (0.55-1.02); EST Glomerular Filtration Rate 72 mL/min (>60); Est Glom Filt Rate - Afr Amer 87 mL/min (>60); Glucose 120 mg/dL (74-106); High Density Lipoprotein 41 mg/dL; Sodium Level 139 mmol/L (136-145); Triglycerides 230 mg/dL; Very Low Density Lipoprotein 46 mg/dL (5-40)
== END | disposition home or self-care (01) ==
LOC: MFPLAB 14:11
PROVIDERS: PCP Family Medicine; Visit Provider Family Medicine
DX: I10 Essential (primary) hypertension (principal)
CPT/HCPCS: 36415; 80048; 80061

== ENCOUNTER → 2023-07-07 | Outpatient (CLI) | payer MEDICARE, OTHER, SELFPAY ==
--- NOTE | 2023-07-07 09:19 | BI_ITS ---
MAMMOGRAPHY - BILATERAL SCREENING REASON FOR EXAM: Female, 68 years old. Routine annual screening examination. PERTINENT HISTORY: Non-contributory. TECHNIQUE: Digital bilateral breast erick (3D mammographic acquisition) in the CC and MLO projections. 2-D mediolateral oblique (MLO) and craniocaudad (CC) views of both breasts were obtained. CAD: Full Field Digital Mammography with Computer Added Detection was performed. COMPARISON: Comparison is made with prior study June 02, 2022. FINDINGS: Breast Composition: The breasts are heterogeneously dense, which may obscure small masses. There are no dominant masses or suspicious calcifications. Stable benign-appearing bilateral axillary lymph nodes. No other significant abnormalities are identified. There has been no significant change since the prior study. BI/SCRN MAMM (CAD)W/ERICK BILAT IMPRESSION: Stable bilateral screening mammogram. Yearly follow-up mammogram recommended. (A) ASSESSMENT CATEGORY: BIRADS Category 2: Benign. A letter regarding these results will be sent to the patient by the facility within 30 days. Approximately 10% of breast cancers are not detected by mammography. A normal mammogram should not delay biopsy of a clinically suspicious abnormality. [id number] Electronically Signed: Johnathan Thrasher MD at 9:55 EDT ,
== END | disposition home or self-care (01) ==
PROVIDERS: PCP Family Medicine; Referring Provider Family Medicine; Visit Provider Family Medicine
DX: Z12.31 Encounter for screening mammogram for malignant neoplasm of breast (principal)
CPT/HCPCS: 77063; 77067

== ENCOUNTER → 2024-07-22 | Outpatient (CLI) | payer MEDICARE, SELFPAY ==
--- NOTE | 2024-07-22 13:44 | BI_ITS ---
MAMMOGRAPHY - BILATERAL SCREENING REASON FOR EXAM: Female, 69 years old. Routine annual screening examination. PERTINENT HISTORY: Non-contributory. TECHNIQUE: Digital bilateral breast erick (3D mammographic acquisition) in the CC and MLO projections. 2-D mediolateral oblique (MLO) and craniocaudad (CC) views of both breasts were obtained. CAD: Full Field Digital Mammography with Computer Added Detection was performed. COMPARISON: Comparison is made with prior study July 07, 2023 and June 02, 2022. FINDINGS: Breast Composition: The breasts are heterogeneously dense, which may obscure small masses. There are no dominant masses or suspicious calcifications. Stable bilateral fat containing axillary lymph nodes. No other significant abnormalities are identified. There has been no significant change since the prior study. BI/SCRN MAMM (CAD)W/ERICK BILAT IMPRESSION: Stable bilateral screening mammogram. Yearly follow-up mammogram recommended. (A) ASSESSMENT CATEGORY: BIRADS Category 2: Benign. A letter regarding these results will be sent to the patient by the facility within 30 days. Approximately 10% of breast cancers are not detected by mammography. A normal mammogram should not delay biopsy of a clinically suspicious abnormality. [id number] Electronically Signed: Johnathan Thrasher MD at 14:23 EDT ,
== END | disposition home or self-care (01) ==
LOC: OPBI 13:44
PROVIDERS: PCP Family Medicine; Referring Provider Family Medicine; Visit Provider Family Medicine
DX: Z12.31 Encounter for screening mammogram for malignant neoplasm of breast (principal)
CPT/HCPCS: 77063; 77067

== ENCOUNTER → 2024-07-29 | Outpatient (CLI) | payer MEDICARE, SELFPAY ==
[2024-07-29 16:00] LABS: Anion Gap 5 (5-15); BUN 11 mg/dL (7-18); Calcium,Total 9.4 mg/dL (8.5-10.1); Chloride 108 mmol/L (98-107); Cholesterol 229 mg/dL (200); Creatinine, Serum 0.79 mg/dL (0.55-1.02); EST Glomerular Filtration Rate 77 mL/min (>60); Est Glom Filt Rate - Afr Amer 93 mL/min (>60); Glucose 89 mg/dL (74-106); High Density Lipoprotein 51 mg/dL; Potassium 4.3 mmol/L (3.5-5.1); Sodium Level 138 mmol/L (136-145); Triglycerides 267 mg/dL; Very Low Density Lipoprotein 53 mg/dL (5-40)
[2024-07-29 17:16] LABS: Protein, Urine (Random) < 6.0 mg/dL (<11.9)
== END | disposition home or self-care (01) ==
LOC: MFPLAB 11:57
PROVIDERS: PCP Family Medicine; Visit Provider Family Medicine
DX: I10 Essential (primary) hypertension (principal)
CPT/HCPCS: 36415; 80048; 80061; 82570; 84156

== ENCOUNTER → 2025-03-19 | Outpatient (CLI) | payer MEDICARE, SELFPAY ==
--- NOTE | 2025-03-19 15:13 | RAD_ITS ---
PROCEDURE: KNEE 4 OR MORE VIEWS 03/19/2025 REASON FOR EXAM: PAIN TECHNIQUE: 4 view(s) of each knee COMPARISON: None FINDINGS: No fracture or traumatic malalignment. There is moderate joint space narrowing in the medial and patellofemoral compartments of both knees. Trace bilateral knee joint effusions. There is a 9 mm corticated calcification which projects near the medial tibial spine in the right knee. RAD/Knee 4 or More Views IMPRESSION: 1. Moderate bilateral knee osteoarthritis. 2. Corticated 9 mm calcification projecting near the tibial spine in the right knee may represent an intra-articular loose body. 3. Trace bilateral knee joint effusions. Reading Location: [facility]
--- NOTE | 2025-03-19 15:13 | RAD_ITS ---
PROCEDURE: KNEE 4 OR MORE VIEWS 03/19/2025 REASON FOR EXAM: PAIN TECHNIQUE: 4 view(s) of each knee COMPARISON: None FINDINGS: No fracture or traumatic malalignment. There is moderate joint space narrowing in the medial and patellofemoral compartments of both knees. Trace bilateral knee joint effusions. There is a 9 mm corticated calcification which projects near the medial tibial spine in the right knee. RAD/Knee 4 or More Views IMPRESSION: 1. Moderate bilateral knee osteoarthritis. 2. Corticated 9 mm calcification projecting near the tibial spine in the right knee may represent an intra-articular loose body. 3. Trace bilateral knee joint effusions. Reading Location: [facility]
== END | disposition home or self-care (01) ==
LOC: MTRAD 15:11
PROVIDERS: PCP Family Medicine; Referring Provider Family Medicine; Visit Provider Family Medicine
DX: M25.561 Pain in right knee (principal); M25.562 Pain in left knee
CPT/HCPCS: 73564

== ENCOUNTER → 2025-08-04 | Outpatient (CLI) | payer MEDICARE, SELFPAY ==
--- NOTE | 2025-08-04 12:30 | BI_ITS ---
EXAM: SCRN MAMM (CAD)W/ERICK BILAT DATE: 08/04/2025 CLINICAL HISTORY: F, Age 70 y/o , ANNUAL TECHNIQUE: Procedure Code: [id number] Modality: MG Procedure: SCRN MAMM (CAD)W/ERICK BILAT COMPARISON: Prior exam(s) dated 07/22/2024, 07/07/2023. FINDINGS: TISSUE DENSITY: The breasts are heterogeneously dense, which may obscure small masses. Bilateral Breast Mammographic Findings: No significant masses, calcifications or other abnormalities are identified. Benign-appearing round microcalcifications are seen in both breasts. Benign-appearing axillary lymph nodes are seen. BI/SCRN MAMM (CAD)W/ERICK BILAT IMPRESSION: Benign screening mammogram. OVERALL FINAL ASSESSMENT BI-RADS 2: BENIGN RECOMMENDATION: Routine annual follow-up in 1 Year Additional Recommendation none A letter with findings and recommendations will be mailed to the patient. Reading Location: [id number]
== END | disposition home or self-care (01) ==
LOC: OPBI 12:24
PROVIDERS: PCP Family Medicine; Referring Provider Family Medicine; Visit Provider Family Medicine
DX: Z12.31 Encounter for screening mammogram for malignant neoplasm of breast (principal)
CPT/HCPCS: 77063; 77067

== ENCOUNTER → 2025-08-21 | Outpatient (CLI) | payer MEDICARE, SELFPAY ==
--- NOTE | 2025-08-21 12:38 | BD_ITS ---
PROCEDURE: DEXA BONE DENSITY STUDY 08/21/2025 REASON FOR EXAM: F, age 70 y/o . Postmenopausal. TECHNIQUE: Procedure Code: BDDBD Modality: DX Procedure: DEXA BONE DENSITY STUDY COMPARISON: June 02, 2022. FINDINGS: BMD and T-SCORES Lumbar spine: 0.992 g/cm2, T-score -0.5 Levels: L1 through L4 Change from prior: Improvement of 7.2%. Left femoral neck: 0.617 g/cm2, T-score -2.1 Femoral neck comparison data not recommended for monitoring change. Left total hip: 0.786 g/cm2, T-score -1.3 Change from prior: Loss of 1.1%. Right femoral neck: 0.594 g/cm2, T-score -2.3 Femoral neck comparison data not recommended for monitoring change. Right total hip: 0.728 g/cm2, T-score -1.8 Change from prior: Loss of 1.1%. The World Health Organization has defined the following categories based on bone density: Normal bone density: T-score equal to or greater than -1.0 Osteopenia: T-score between -1.0 and -2.5 Osteoporosis: T-score equal to or less than -2.5 FRAX (or Comparable) Fracture Risk Assessment: 10 Year Probability of Fracture: Major Osteoporotic Fracture: 19% Hip Fracture: 3.6% (Note: FRAX is not to be reported in setting of normal range bone density, osteoporosis on DEXA, known history of osteoporosis, prior osteoporotic hip or vertebral fracture, or for any patient undergoing pharmacological treatment for bone loss.) The National Osteoporosis Foundation (NOF) recommends pharmacological treatment for patients with a FRAX 10-year risk of 3% or higher for a hip fracture, or 20% or higher for a major osteoporotic fracture, to prevent osteoporosis and reduce fracture risk. The patient does meet the pharmacological treatment recommendations for prevention of osteoporosis. BD/Dexa Bone Density Study IMPRESSION: OSTEOPENIA. Recommend follow-up as clinically warranted. Reading Location: [id number]
[2025-08-21 13:51] LABS: PTHIN 89 pg/mL (11-61)
[2025-08-21 13:54] LABS: Anion Gap 11 (5-15); BUN 14 mg/dL (4-19); BUN/Creat Ratio 18.0 RATIO (10-20); Calcium,Total 9.4 mg/dL (7.6-11.0); Carbon Dioxide 24.0 mmol/L (21.0-32.0); Chloride 106 mmol/L (98-108); Cholesterol 211 mg/dL (<=200); Glucose 99 mg/dL (70-99); Low Density Lipoprotein Calc. 135 mg/dL; Potassium 4.4 mmol/L (3.3-5.1); Triglycerides 144 mg/dL; Very Low Density Lipoprotein 29 mg/dL (5-40); cholesterol:hdl ratio screen 4.21
== END | disposition home or self-care (01) ==
PROVIDERS: PCP Family Medicine
DX: M81.0 Age-related osteoporosis without current pathological fracture (principal); Z13.820 Encounter for screening for osteoporosis; I10 Essential (primary) hypertension
CPT/HCPCS: 36415; 77080; 80048; 80061; 83970; 84443

== ENCOUNTER → 2025-10-14 | Outpatient (CLI) | payer MEDICARE, SELFPAY ==
[2025-10-14 15:39] LABS: Vitamin D,25 Hydroxy 44.0 ng/mL (30-100)
== END | disposition home or self-care (01) ==
LOC: MFPLAB 11:25
PROVIDERS: PCP Family Medicine; Visit Provider Family Medicine
DX: M81.0 Age-related osteoporosis without current pathological fracture (principal)
CPT/HCPCS: 36415; 82306